=== PATIENT | female | born 1970 | race Hispanic/Latino ===

== ENCOUNTER 2017-12-29 17:16 | Emergency (ER) | payer BC ==
[2017-12-29 17:16] VITALS: BMI 44.1
[2017-12-29 19:26] VITALS: BP 105/62; PULSE 86; RESP 18; TEMP 98.2; O2SAT 100
[2017-12-29 20:37] LABS: BASO # 0.03 K/mm3 (0.0-2.0); BASO % 0.3 % (0.0-3.0); EOS # 0.9 (0.0-0.7); EOS % 10.2 % (1.5-5.0); GRAN # 4.98 (1.4-6.5); GRAN % 56.4 % (50.0-68.0); HEMOGLOBIN 8.3 g/dL (12.0-16.0); LYMPH # 2.5 (1.2-3.4); LYMPH % 28.1 % (22.0-35.0); MEAN CELL VOLUME 70.6 fl (80.0-105.0); MEAN CORPUSCULAR HEMOGLOBIN 21.6 pg (25.0-35.0); MEAN CORPUSCULAR HGB CONC 30.5 g/dl (31.0-37.0); MEAN PLATELET VOLUME 8.6 fl (7.0-11.0); MONO # 0.4 (0.1-0.6); RBC 3.85 10^6/uL (3.5-6.1); RED CELL DISTRIBUTION WIDTH 22.2 % (11.5-14.5); WHITE BLOOD COUNT 8.8 10^3/ul (4.5-11.0)
[2017-12-29 20:45] LABS: INR 1.1; PARTIAL THROMBOPLASTIN TIME 30.8 Seconds (25.1-36.5); PROTHROMBIN TIME 12.6 SECONDS (9.4-12.5)
[2017-12-29 20:47] LABS: ALB/GLOB RATIO 1.4 (1.1-1.8); ALT/SGPT 28 U/L (7-56); AST/SGOT 28 U/L (14-36); BLOOD UREA NITROGEN 10 mg/dL (7-21); CALCIUM 9.2 mg/dL (8.4-10.5); GFR NON-AFRICAN AMERICAN > 60
--- NOTE | 2017-12-29 21:49 | ED PDOC ---
Arrival/HPI - General Chief Complaint: Back Pain Time Seen by Provider: 12/29/17 17:49 Historian: Patient - History of Present Illness Narrative History of Present Illness (Text): 12/29/17 21:49 47 year old female, whose past medical history includes hiatal hernia, gastric sleeve, anemia, arthritis, presents to the emergency department with bilateral leg swelling. Patient was referred by her PMD, Dr. Manuel. Patient was scheduled for hernia repair, lab tests were done and found anemia, so she was referred to the emergency department. Patient informs of generalized weakness and dizziness ongoing for a week. Patient also complains of bilateral foot swelling, and calf pain. Patient informs that she has had these symptoms before , and they usually resolve by the end of the day. Patient denies any fever, chills, chest pain, shortness of breath, cough, abdominal pain, nausea, vomiting , diarrhea, back pain, neck pain, urinary/bowel changes, or any other complaint. Time/Duration: > week Past Medical History - Provider Review Nursing Documentation Reviewed: Yes - Infectious Disease Hx of Infectious Diseases: None - Tetanus Immunization Tetanus Immunization: Up to Date - Cardiac Hx Cardiac Disorders: No - Pulmonary Hx Respiratory Disorders: No - Neurological Hx Neurological Disorder: Yes Hx Dizziness: Yes - HEENT Hx HEENT Disorder: No - Renal Hx Renal Disorder: No - Endocrine/Metabolic Hx Endocrine Disorders: No - Hematological/Oncological Hx Blood Disorders: Yes Hx Anemia: Yes Hx Hepatitis C: Yes - Integumentary Hx Dermatological Disorder: No - Musculoskeletal/Rheumatological Hx Musculoskeletal Disorders: Yes Hx Arthritis: Yes - Gastrointestinal Hx Gastrointestinal Disorders: Yes - Genitourinary/Gynecological Hx Genitourinary Disorders: No - Psychiatric Hx Psychophysiologic Disorder: Yes Hx Anxiety: Yes Hx Depression: Yes Hx Substance Use: No - Past Surgical History Past Surgical History: No Previous - Surgical History Other/Comment: GASTRIC SLEEVE - Suicidal Assessment Feels Threatened In Home Enviroment: No Family/Social History - Physician Review Nursing Documentation Reviewed: Yes Family/Social History: No Known Family HX Smoking Status: Heavy Smoker > 10 Cigarettes Daily Hx Alcohol Use: No Hx Substance Use: No Hx Substance Use Treatment: No Allergies/Home Meds Allergies/Adverse Reactions: Allergies shellfish derived Allergy (Verified 12/30/17 00:45) RASH Sulfa (Sulfonamide Antibiotics) Allergy (Verified 12/30/17 00:45) ANGIOEDEMA Home Medications: Home Meds Medication Instructions Recorded Confirmed Alprazolam [Xanax] 1 mg PO TID 10/24/12 12/18/17 Buprenorphine HCl/Naloxone HCl 1 tab PO TID 12/18/17 12/18/17 [Suboxone 8 mg-2 mg Sl Film] Zolpidem [Ambien] 10 mg PO HS 12/18/17 12/18/17 Review of Systems - Physician Review All systems were reviewed & negative as marked: Yes - Review of Systems Constitutional: Normal. absent: Fevers, Night Sweats Eyes: Normal ENT: Normal Respiratory: Normal. absent: SOB, Cough Cardiovascular: Normal. absent: Chest Pain Gastrointestinal: Normal. absent: Abdominal Pain, Diarrhea, Nausea, Vomiting Genitourinary Female: Normal. absent: Urine Output Changes Musculoskeletal: Normal. absent: Back Pain, Neck Pain Skin: Normal Neurological: Normal Endocrine: Normal Hemo/Lymphatic: Normal Psychiatric: Normal Physical Exam Vital Signs Reviewed: Yes Vital Signs Temp Pulse Resp BP Pulse Ox 12/29/17 19:26 98.2 F 86 18 105/62 100 Temperature: Afebrile Blood Pressure: Normal Pulse: Regular Respiratory Rate: Normal Appearance: Positive for: Well-Appearing, Non-Toxic, Comfortable Pain Distress: None Mental Status: Positive for: Alert and Oriented X 3 - Systems Exam Head: Present: Atraumatic, Normocephalic Pupils: Present: PERRL Extroacular Muscles: Present: EOMI Conjunctiva: Present: Normal Mouth: Present: Moist Mucous Membranes Neck: Present: Normal Range of Motion Respiratory/Chest: Present: Clear to Auscultation, Good Air Exchange. No: Respiratory Distress, Accessory Muscle Use Cardiovascular: Present: Regular Rate and Rhythm, Normal S1, S2. No: Murmurs Abdomen: No: Tenderness, Distention, Peritoneal Signs Back: Present: Normal Inspection Upper Extremity: Present: Normal Inspection. No: Cyanosis, Edema Lower Extremity: Present: Edema (Bipedal edema), CALF TENDERNESS (bilateral calf tenderness), NORMAL PULSES (Pedal Pulses intact) Neurological: Present: GCS=15, CN II-XII Intact, Speech Normal Skin: Present: Warm, Dry, Normal Color. No: Rashes Psychiatric: Present: Alert, Oriented x 3, Normal Insight, Normal Concentration Medical Decision Making ED Course and Treatment: 12/29/17 22:00 Impression: 47 year old female presents with bilateral leg swelling. Plan: -- Reassess and disposition Prior Visits: Notes and results from previous visits were reviewed. Progress Notes: 12/29/17 22:03 Labs show negative for DVT. CBC came back as 8.3, will be treated for symptomatic anemia. 12/30/17 01:12 Pt signed out AMA stating that she have to go take care of her dog and come back she understood the risk of sudden , worsening symptoms, permanent disability that can occur. she states she ill come back to ED as soon as she took care of her dog. She signed out AMA Case was also DW Dr. Manuel and he agreed with the plan to transfuse with a unit and DC pt. But patient declined and he was aware. - Lab Interpretations Lab Results: 12/29/17 20:29 12/29/17 20:29 Lab Results 12/29/17 20:29: NT-Pro-B Natriuret Pep 84.2 12/29/17 20:29: Blood Type O POSITIVE, Antibody Screen Negative, BBK History Checked No verified bt 12/29/17 20:29: Sodium 139, Potassium 3.6, Chloride 106, Carbon Dioxide 25, Anion Gap 12, BUN 10, Creatinine 0.7, Est GFR ( Amer) > 60, Est GFR (Non- Af Amer) > 60, Random Glucose 112 H, Calcium 9.2, Total Bilirubin 0.1 L, AST 28 , ALT 28, Alkaline Phosphatase 79, Total Protein 7.0, Albumin 4.0, Globulin 3.0 , Albumin/Globulin Ratio 1.4 12/29/17 20:29: PT 12.6 H, INR 1.10, APTT 30.8 12/29/17 20:29: WBC 8.8, RBC 3.85, Hgb 8.3 L, Hct 27.2 L, MCV 70.6 L, MCH 21.6 L , MCHC 30.5 L, RDW 22.2 H, Plt Count 245, MPV 8.6, Gran % 56.4, Lymph % (Auto) 28.1, [place] % (Auto) 5.0, Eos % (Auto) 10.2 H, Baso % (Auto) 0.3, Gran # 4.98, Lymph # (Auto) 2.5, [place] # (Auto) 0.4, Eos # (Auto) 0.9 H, Baso # (Auto) 0.03 - RAD Interpretation Radiology Orders: 12/29/17 19:39 DUPLEX LOWER EXTRM VEIN BILAT [US] Stat 12/29/17 21:38 CHEST PORTABLE [RAD] Stat - Scribe Statement The provider has reviewed the documentation as recorded by the Scribe Saran Caicedo Provider Scribe Attestation: All medical record entries made by the Scribe were at my direction and personally dictated by me. I have reviewed the chart and agree that the record accurately reflects my personal performance of the history, physical exam, medical decision making, and the department course for this patient. I have also personally directed, reviewed, and agree with the discharge instructions and disposition. Disposition/Present on Arrival - Present on Arrival Any Indicators Present on Arrival: No History of DVT/PE: No History of Uncontrolled Diabetes: No Urinary Catheter: No History of Decub. Ulcer: No History Surgical Site Infection Following: None - Disposition Have Diagnosis and Disposition been Completed?: Yes Diagnosis: Symptomatic anemia, Leg edema Disposition: AGAINST MEDICAL ADVICE Disposition Time: 21:30 Patient Plan: Discharge Condition: STABLE Forms: e-SENS (Malay)
--- NOTE | 2017-12-30 12:00 | US ---
HISTORY: Leg pain and swelling. Evaluate for DVT PHYSICIAN(S): Saran Mccann MD. TECHNIQUE: Duplex sonography and color-flow Doppler with graded compression were used to evaluate the deep venous systems of both lower extremities. FINDINGS: The visualized deep venous systems of both lower extremities are sonographically normal and compressible. Normal wave forms and augmentation are seen. There is no sonographic evidence for deep venous thrombosis in the visualized segments of both lower extremities. IMPRESSION: No sonographic evidence for deep venous thrombosis in the visualized segments of both lower extremities.
--- NOTE | 2017-12-30 13:17 | RAD ---
Date of service: 12/29/2017 HISTORY: admission COMPARISON: 12/07/2017 FINDINGS: LUNGS: No active pulmonary disease. PLEURA: No significant pleural effusion identified, no pneumothorax apparent. CARDIOVASCULAR: Normal. OSSEOUS STRUCTURES: No significant abnormalities. VISUALIZED UPPER ABDOMEN: Normal. OTHER FINDINGS: None. IMPRESSION: No active disease.
== END 2017-12-29 19:50 | disposition left against medical advice (07) ==
LOC: ED 17:16
DX: D64.9 Anemia, unspecified (principal); R60.0 Localized edema; F17.210 Nicotine dependence, cigarettes, uncomplicated